=== PATIENT | male | born 1945 | race Caucasian/White ===

== ENCOUNTER 2017-07-17 14:21 | Emergency (ER) | payer MEDICARE, OTHER, SELFPAY ==
[2017-07-17] VITALS (7 sets, daily range): BP systolic 161–172; BP diastolic 90–91; PULSE 62–63; RESP 16–18; TEMP 36.6; O2SAT 94–98; BMI 22.6
--- NOTE | 2017-07-17 14:45 | EKG12_ITS ---
Test Reason : [facility] [place] Pressure : / mmHG Vent. Rate : 057 BPM Atrial Rate : 057 BPM P-R Int : 156 ms QRS Dur : 090 ms QT Int : 418 ms P-R-T Axes : 077 078 069 degrees QTc Int : 406 ms Sinus bradycardia with sinus arrhythmia Otherwise normal ECG Confirmed by VANDANA VASQUEZ, ARYA ([id number]), assistant film editor CORBIN VALENTINO ([id number]) on 07/21/2017 4:37:49 PM Referred By: DIAZ Confirmed By:ARYA ROSS MD
--- NOTE | 2017-07-17 14:45 | CT_ITS ---
STUDY: CT BRAIN WITHOUT CONTRAST REASON FOR EXAM: Male, 72 years old. Confusion. RADIATION DOSAGE (If Supplied By Facility): CTDIvol = ( 44.99 ) mGy, DLP = ( 779.24 ) mGycm TECHNIQUE: Transaxial CT imaging of the brain was performed without administration of intravenous contrast material. Individualized dose optimization techniques were used for this CT. COMPARISON: None. FINDINGS: Normal soft tissue structures. Normal calvarium. There is mild cerebral atrophy with widening of the extra-axial spaces and ventricular dilatation. Normal white matter tracts of the cerebral hemispheres. Normal basal ganglia and thalami. There is evidence of old infarctions in the tasneem and midbrain. Normal cerebellum. There is no intracranial hemorrhage. There are no findings of an acute ischemic infarction. Atherosclerotic calcification of the vertebral arteries and cavernous portions of the internal carotid arteries bilaterally. Normal visualized paranasal sinuses. CT/Brain/Head without Contrast IMPRESSION: Chronic involutional changes of the brain. 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 Electronically Signed: Bladimir Turner MD at 15:36 EST Tel [phone], Service support ,
--- NOTE | 2017-07-17 14:59 | ED.VISSUMM ---
- ER Visit Summary Date of Service: 07/17/17 Chief Complaint: Suicidal thoughts History of Present Illness: The patient is a 72 M who cares for his at home, who is disabled from a major stroke. This is caused him great depression, which he has been dealing with since 2006. He has been seen counseling here locally for that, but stopped several months ago because it did not feel like it was helping. For the last week he is feeling worse and having suicidal thoughts although he has no intention of doing so. No physical symptoms or illnesses lately. Family states he has been seemingly confused at times, this is mostly when he seems to be feeling overwhelmed, and he seems more confused with what kind of task to do next regarding taking care of himself or his , however he is not had any confusion regarding who he is, where he is, etc. Physical Examination: Hypertensive 172/90 otherwise vital signs are normal. He has a depressed affect but is keenly alert and oriented ?3 and has a normal peripheral neurologic exam. Neck is supple. Heart is regular, lungs are clear. Abdomen benign. No signs of self injury. No thyromegaly or neck tenderness. Neck is supple. Test Results: Labs, toxicology, CT head, EKG unremarkable. Emergency Department Course and Treatment: Medically cleared for psychiatric evaluation. Awaiting crisis to evaluate. Treatment Plan: Crisis evaluation Disposition: Pending crisis evaluation Impression: Depression Suicidal thoughts This note was generated with Glints dictation software. It may contain incorrect words, spelling, and punctuation that were not noted in review of the chart prior to signing ED Disposition - Plan for ED Patient: Chief Complaint: Mental Health Referrals: Glenn Choe MD [Primary Care Provider] -
--- NOTE | 2017-07-17 15:02 | ED.DCSUM_ITS ---
- ER Visit Summary Date of Service: 07/17/17 Chief Complaint: Suicidal thoughts History of Present Illness: The patient is a 72 M who cares for his at home , who is disabled from a major stroke. This is caused him great depression, which he has been dealing with since 2006. He has been seen counseling here locally for that, but stopped several months ago because it did not feel like it was helping. For the last week he is feeling worse and having suicidal thoughts although he has no intention of doing so. No physical symptoms or illnesses lately. Family states he has been seemingly confused at times, this is mostly when he seems to be feeling overwhelmed, and he seems more confused with what kind of task to do next regarding taking care of himself or his , however he is not had any confusion regarding who he is, where he is, etc. Physical Examination: Hypertensive 172/90 otherwise vital signs are normal. He has a depressed affect but is keenly alert and oriented ?3 and has a normal peripheral neurologic exam. Neck is supple. Heart is regular, lungs are clear. Abdomen benign. No signs of self injury. No thyromegaly or neck tenderness. Neck is supple. Test Results: Labs, toxicology, CT head, EKG unremarkable. Emergency Department Course and Treatment: Medically cleared for psychiatric evaluation. Awaiting crisis to evaluate. Treatment Plan: Crisis evaluation Disposition: Pending crisis evaluation Impression: Depression Suicidal thoughts This note was generated with [employer] dictation software. It may contain incorrect words, spelling, and punctuation that were not noted in review of the chart prior to signing ED Disposition - Plan for ED Patient: Chief Complaint: Mental Health Referrals: Glenn Choe MD [Primary Care Provider] -
[2017-07-17 15:09] LABS: Amphetamine Urine VISTA NEGATIVE (<1000 ng/mL); Barbiturate Urine VISTA NEGATIVE (< 200 ng/mL); Benzodiazepine Urine VISTA NEGATIVE (< 200 ng/mL); Cocaine Urine VISTA NEGATIVE (< 300 ng/mL); Ecstacy Urine VISTA NEGATIVE (< 500 ng/mL); Methadone Urine VISTA NEGATIVE (< 300 ng/mL); PCP Urine VISTA NEGATIVE (< 25 ng/mL); THC Urine VISTA NEGATIVE (< 50 ng/mL); Vista UDS pH Range 6
[2017-07-17 15:20] LABS: Absolute Lymphocyte Count 0.69 X10^3/ul (0.83-4.51); Absolute Neutrophil Count 6.1 X10^3/uL (2.0-7.7); Basophil# 0.02 X10^3/uL; Basophil% 0.3 % (0-1); Eosinophils% 1.3 % (0-5); Hematocrit 41.5 % (40-54); Hemoglobin 13.9 g/dl (13.0-16.5); Lymphocyte # 0.69 X10^3/ul (4.0); Lymphocyte % 9.2 % (19-41); Mean Corp Hgb Conc 33.5 g/gl (32-36); Mean Corpuscular Hgb 29.9 pg (27.0-32.0); Mean Corpuscular Volume 89.2 fL (80-94); Mean Platelet Vol. 9.5 fl (6.2-12.0); Monocyte# 0.63 X10^3/uL; Monocyte% 8.4 % (0-10); Neutrophil # 6.06 X10^3/uL (2.7-7.7); Neutrophil % 80.7 % (47-70); Platelet Count 213 K/mm3 (150-450); RBC Distribution Width CV 13.7 % (11.6-14.6); RBC Distribution Width SD 44.7 fl (35.1-43.9); Red Blood Count 4.65 M/mm3 (4.6-6.2); White Blood Count 7.5 K/mm3 (4.4-11.0)
[2017-07-17 15:28] LABS: POSITIVE COUNT NO; POSITIVE DIFFERENTIAL NO; POSITIVE MORPHOLOGY NO; Thyroid Stim Hormone (TSH) 2.09 uIU/mL (0.358-3.74)
[2017-07-17 17:16] LABS: Anion Gap 9 (5-15); BUN 15 mg/dL (7-18); BUN/Creat Ratio 17.3 RATIO (10-20); Calcium,Total 8.8 mg/dL (8.5-10.1); Chloride 111 mmol/L (98-107); Creatinine, Serum 0.87 mg/dL (0.70-1.30); EST Glomerular Filtration Rate 92 mL/min (>60); Est Glom Filt Rate - Afr Amer 112 mL/min (>60); Estimated Creatinine Clearance 69.95 ml/min; Glucose 85 mg/dL (74-106); Potassium 3.5 mmol/L (3.5-5.1); Sodium Level 143 mmol/L (136-145)
--- NOTE | 2017-07-17 22:17 | ED.VISSUMM ---
- ER Visit Summary Date of Service: 07/17/17 Chief Complaint: [] History of Present Illness: The patient is a 72 M [] Physical Examination: [] Test Results: [] Emergency Department Course and Treatment: [] Treatment Plan: [] Disposition: [] Impression: [] This note was generated with [employer] software. It may contain incorrect words, spelling, and punctuation that were not noted in review of the chart prior to signing <Bossman Yeager - Last Filed: 07/17/17 22:17> - ER Visit Summary Addendum: This patient was checked out to me by Dr. Thakur with consult from the counseling center pending. They have been into see the patient and have discussed things with him. He is able to contract for safety. He will be discharged instructed to follow-up the counseling center on Thursday for further evaluation and treatment. Return to the emergency department for any further thoughts of harming himself or any other concerns. This note was generated with [employer] software. It may contain incorrect words, spelling, and punctuation that were not noted in review of the chart prior to signing <Javon Aguilar - Last Filed: 07/18/17 00:55> ED Disposition <Bossman Yeager - Last Filed: 07/17/17 22:17> <Javon Aguilar - Last Filed: 07/18/17 00:55> - Plan for ED Patient: Disposition: Home or Assisted Living Chief Complaint: Mental Health Instructions: ED Depression Referrals: Counseling,Center [GROUP OF PHYSICIANS] -
== END 2017-07-17 22:26 | disposition home or self-care (01) ==
PROVIDERS: Emergency Provider Emergency Medicine; Family Provider Family Medicine; PCP Family Medicine
DX: R45.851 Suicidal ideations (principal); F32.9 Major depressive disorder, single episode, unspecified; E78.00 Pure hypercholesterolemia, unspecified
CPT/HCPCS: 36415; 70450; 80048; 80307; 80320; 84443; 85025; 93005; 99283; G0480

== ENCOUNTER 2019-02-11 12:21 | Day surgery (SDC) | payer MEDICARE, SELFPAY ==
[2019-02-11 12:46] VITALS: BP 147/85; PULSE 70; RESP 16; TEMP 37.1; O2SAT 96; BMI 23.8
[2019-02-11] MEDS: Lactated Ringers 1,000 ML 100 ML IV (12:56)
[2019-02-11] MEDS: Cefazolin 2 GM in 0.9% Normal Saline 100 ML IV (14:04)
--- NOTE | 2019-02-11 14:51 | DCINST_ITS ---
Discharge Diet: Light diet - advance as tolerated Discharge Activity: Return to Normal Activity Instructions: Shock Wave Lithotripsy Allergies/Adverse Reactions: Allergies amoxicillin Allergy (Verified 02/11/19 12:33) Pain in joints doxycycline Allergy (Verified 02/11/19 12:33) Upset Stomach Sulfa (Sulfonamide Antibiotics) Allergy (Verified 02/11/19 12:33) Swelling Medications to take at Discharge Atorvastatin Calcium [Lipitor] 40 mg PO DAILY 07/17/17 Montelukast [Singulair] 10 mg PO DAILY 07/17/17 Terazosin HCl [Hytrin] 2 mg PO DAILY 07/17/17 Venlafaxine XR [Effexor Xr] 150 mg PO DAILY 07/17/17 Oxycodone HCl/Acetaminophen [Percocet 5/325] 1 tab PO Q4H PRN PRN 5 Days #14 tab 02/11/19 The following prescriptions were given: Oxycodone HCl/Acetaminophen [Percocet 5/325] 1 tab PO Q4H PRN PRN 5 Days #14 tab PRN Reason: Pain Prescription Printed Primary Care Physician: Glenn Choe MD [Primary Care Provider] - Test Results: Test results from this visit will be discussed in further detail at your follow- up appointment, if applicable. Please Follow Up With: Christiano Llanos MD When: in 2 weeks, please call to make an appointment.
--- NOTE | 2019-02-11 14:53 | PCM.OPRPT ---
Report of Operation Date of Procedure: 02/11/19 Pre-Operative Diagnosis: Left ureteral calculi causing obstruction, mid ureter Post-Operative Diagnosis: Same Surgery/Procedure Performed:: Left extracorporeal shockwave lithotripsy Description of Surgical Findings:: 73-year-old male presented the office with obstructing stone in the mid left ureter on review of his x-rays and CAT scan recommended we proceed with shockwave lithotripsy understands possible the treatment could fail may need more than one treatment could also reduce require a stent. After reviewing the risk and benefits of the procedure the patient wishes to proceed. 73-year-old male taken back to the operating room at the smooth induction of general anesthesia he was placed supine on the table and then we placed him on the table supine we used fluoroscopy to identify the stone in the mid ureter on the left side after triangulating the stone we then brought in the therapy had replaced the stone at the F2 focal point of the machine and then started with shockwave lithotripsy aiming the shockwaves at the stone we monitored the stone during the treatment phase. We increased her power from 7 to 9 kV rate of 90. At a total of 3000 shockwaves a stone it broken up and successful smaller fragments decided not to leave a stent and we stopped the treatment at the end of the treatment cycle appeared to be a successful fragmentation plan to see him back in a few weeks with a KUB. Patient anesthetic was reversed taken back to PACU good condition. - Admit VTE Documentation VTE Present on Admission: No VTE Mechan Device Prophylaxis: SCD's
[2019-02-11 14:58] VITALS: BP 147/85; BP 151/84; PULSE 80; RESP 16; TEMP 36.7; O2SAT 97
[2019-02-11 15:15] VITALS: BP 137/77; BP 147/85; PULSE 80; RESP 16; O2SAT 98
[2019-02-11] MEDS: Ketorolac 15 MG/ML Vial IV (15:19)
[2019-02-11 15:30] VITALS: BP 145/78; BP 147/85; PULSE 75; RESP 16; TEMP 36.7; O2SAT 93
[2019-02-11 16:00] VITALS: BP 147/85
== END 2019-02-11 16:09 | disposition home or self-care (01) ==
LOC: SDC 12:24 → AC 12:25
PROVIDERS: Family Provider Family Medicine; PCP Family Medicine; Referring Provider Urology; Visit Provider Urology
PROC: (CPT 50590; principal; 2019-02-11 14:35)
DX: N20.1 Calculus of ureter (principal)
CPT/HCPCS: 00873; 50590; J7120; J2405

== ENCOUNTER → 2019-03-01 13:19 | Outpatient (CLI) | payer MEDICARE, SELFPAY ==
[2019-02-11 12:46] VITALS: BMI 23.8
--- NOTE | 2019-03-01 13:21 | RAD_ITS ---
STUDY: X-RAY - ABDOMEN/PELVIS REASON FOR EXAM: Male, 73 years old. ESWL one month ago. Evaluate for renal stones. TECHNIQUE: Single AP view of the abdomen / pelvis. COMPARISON: None. FINDINGS: Normal visualized lung bases. There is an unremarkable bowel gas pattern. There is no demonstrated free abdominal air. The visualized liver, spleen and kidneys are grossly normal in size and morphology. Cholecystectomy clips. Phleboliths in the pelvis. Normal visualized osseous structures. RAD/Abdomen Single View IMPRESSION: No radiopaque stones identified. Electronically Signed: David Weir MD at 13:46 EDT , Service support ,
== END ==
PROVIDERS: Family Provider Family Medicine; PCP Family Medicine; Referring Provider Urology; Visit Provider Urology
DX: N20.0 Calculus of kidney (principal)
CPT/HCPCS: 74018

== ENCOUNTER → 2023-06-30 | Outpatient (CLI) | payer MEDICARE, SELFPAY ==
--- NOTE | 2023-06-30 09:44 | RAD_ITS ---
STUDY: X-RAY - ESOPHAGUS (BARIUM SWALLOW) WITH FLUOROSCOPY REASON FOR EXAM: Male, 78 years old. DYSPHAGIA TECHNIQUE: 16 view(s) of the esophagus were obtained following swallowing of barium. FLUOROSCOPY TIME (if supplied): (12 seconds) minutes/seconds. 9.39 mGy COMPARISON: None. FINDINGS: There is no demonstrated esophageal foreign body. There is no demonstrated stricture or mucosal abnormality. Normal gastroesophageal junction, without a demonstrated hiatal hernia. The patient is status post hiatal hernia repair. The patient ingested a 12 mm tablet of barium without any difficulty. Normal visualized aortic arch and descending thoracic aorta. Normal visualized pulmonary parenchyma. Normal visualized osseous structures of the thorax. RAD/Esophagus Single Contrast IMPRESSION: No evidence of gastroesophageal reflux. Evidence of prior hiatal hernia repair. Electronically Signed: Bladimir Turner MD at 12:30 EST ,
--- OUTSIDE RECORDS SUMMARY | 2023-06-30 10:17 | XMS RPT_ITS | CCD ---
Author Name Unknown Address [address] [facility] [address] [place] [address] Organization [facility] Care Team Providers Care Coppersmith Helper Name Role Phone NICOLETTE MELÉNDEZ Referring Unavailable YESICA PADILLA Admitting Unavailable YESICA PADILLA Primary Care Unavailable YESICA PADILLA Attending Unavailable NICOLETTE MELÉNDEZ Consulting Unavailable PROVIDER, UNKNOWN Consulting Unavailable PROVIDER, UNKNOWN Consulting Unavailable PROVIDER, UNKNOWN Consulting Unavailable NICOLETTE MELÉNDEZ Consulting Unavailable ROSA [place] Admitting Unavailable ROSA [place] Primary Care Unavailable ROSA [place] Attending Unavailable PROVIDER, UNKNOWN Consulting Unavailable PROVIDER, UNKNOWN Consulting Unavailable PROVIDER, UNKNOWN Consulting Unavailable SUPPTIKI DPM, NEHAL Mendoza Attending Unavailable PHYSICIAN, NONE Primary Care Unavailable SUPPTIKI DPM, NEHAL Mendoza Attending Unavailable PHYSICIAN, NONE Primary Care Unavailable Eric VASQUEZ, Gerald Lord Unavailable Dr. Josh Honeycutt MD Unavailable [facility] Unavailable TYRONE SONI Unavailable [facility] Walker Unavailable Dr. Farhan Call MD Unavailable [phone] Dr. Armando Vitale MD Unavailable Dr. Kacey Rodriguez MD Unavailable Dr. Rosa Oh MD. Unavailable Dr. Corby Casarez MD Unavailable Mabel Sanders MD Unavailable Loulou HANSON, Jennifer Unavailable Dennis Chao MD Unavailable Gogoi (scribe), Hemanta Unavailable Unavaila ble Erick FISH WARDEN, Romi Unavailable Unavailable Дмитрий VASQUEZ, Nicolette Lord Unavailable Laureen Younger Unavailable Unavailable Butch FISH WARDEN, Cara Unavailable Unavailable King GIANNA-C, Kamran Reeves Unavailable Erika FABIAN, Vandana Lord Unavailable Unavaila ble Goyo FISH WARDEN, Kandis Unavailable Unavailable [place] FISH WARDEN, Macy K Unavailable Unajayyi stas Francois ([facility]), Anuj Unavailable Unavailab le Angella FISH WARDEN, Mabel M Unavailable Unavailab le Ruben FISH WARDEN, Sofia Corrales Unavailable Unavailab le Zaugg FISH WARDEN, Patti Unavailable Unavailable Unavailable Unavailable Allergies Allergy Classification Reported Allergen(s) Allergy Type Date of Onset Reaction(s) Facility (1 source) Amoxicillin Drug Allergy [facility] Repository (1 source) Doxycycline Drug Allergy [facility] (1 source) Penicillins Drug allergy (disorder) [facility] (1 source) Sulfonamides (Antibiotic) Drug allergy (disorder) [facility] (1 source) Erythromycin Drug Allergy [facility], [facility]. (1 source) Penicillin V Drug Allergy [facility]. (1 source) Sulfonamides (Antibiotic) [facility]. Medications Current Medications Medication Drug Class(es) Dates Sig (Normalized) Sig (Original) atorvastatin 40 mg oral tablet (1 source) HMG-CoA Reductase Inhibitor Start: 06-08-2023 atorvastatin 40 mg tablet ; 1 (one) Tablet daily for 0 days Quantity: 90 {Tablet} Refills: 1 Ordered: 08-Jun-2023 MD Gerald Reyes Start: 08-Jun-2023 Completed/Discontinued Medications Medication Drug Class(es) Dates Sig (Normalized) Sig (Original) acyclovir 800 mg oral tablet (1 source) Herpesvirus Nucleoside Analog DNA Polymerase Inhibitor, Herpes Simplex Virus Nucleoside Analog DNA Polymerase Inhibitor, Herpes Zoster Virus Nucleoside Analog DNA Polymerase Inhibitor Start: 02-25-2021 End: 03-04-2021 take 1 tablet by mouth five times daily Acyclovir 800 MG Oral Tablet ; 1 (one) Tablet five times per day for 7 days Quantity: 35 {Tablet} Refills: 0 Ordered: 25-Feb-2021 Start: 25-Feb-2021 End: 04-Mar-2021 Status: Inactive [id number] 200 actuat albuterol 0.09 mg/actuat metered dose inhaler (1 source) beta2-Adrenergic Agonist End: 03-29-2015 VENTOLIN HFA, 108 (90 Base)MCG/ACT (Inhalation Aerosol Solution) ; (108 (90 Base) MCG/ACT) End: 29-Mar-2015 Status: Discontinued 120 actuat budesonide 0.16 mg/actuat / formoterol fumarate 0.0045 mg/actuat metered dose inhaler (1 source) Corticosteroid, beta2-Adrenergic Agonist Start: 04-14-2017 End: 04-06-2018 take 1 puff(s) by inhalation twice daily Symbicort 160-4.5 MCG/ACT Inhalation Aerosol ; 1 (one) puff puff two times daily for 0 days Quantity: 1 {Inhaler} Refills: 0 Ordered: 06-Apr-2018 VALENTIN Daniel Start: 14-Apr-2017 End: 06-Apr-2018 Status: Inactive 24 hr desvenlafaxine 100 mg extended release oral tablet (2 sources) Serotonin and Norepinephrine Reuptake Inhibitor take 1 tablet by mouth once daily Desvenlafaxine ER 100 MG Oral Tablet Extended Release 24 Hour ; 1 daily (100 MG) Status: Inactive levoFLOXacin 500 mg oral tablet (1 source) Quinolone Antimicrobial Start: 08-25-2017 End: 09-01-2017 take 1 tablet by mouth once daily LevoFLOXacin 500 MG Oral Tablet ; 1 (one) Tablet daily for 7 days Quantity: 7 {Tablet} Refills: 0 Ordered: 25-Aug-2017 MD Nicolette Meléndez Start: 25-Aug-2017 End: 01-Sep-2017 Status: Inactive loratadine 10 mg oral tablet (2 sources) Start: 10-03-2021 End: 10-09-2022 take 1 tablet by mouth once daily Loratadine 10 MG Oral Tablet ; 1 (one) Tablet daily for 0 days Quantity: 90 {Tablet} Refills: 3 Ordered: 09-Oct-2022 VALENTIN Jamil Start: 03-Oct-2021 End: 09-Oct-2022 Status: Inactive Comments: Mail order. Problems Active Problems Problem Classification Problem Date Documented Da te Episodic/Chronic Abdominal pain (1 source) Right flank pain; Translations: [Unspecified abdominal pain] 02-15-2015 Episodic Anxiety disorders (13 sources) Anxiety; Translations: [Anxiety disorder, unspecified] 04-15-2023 Chronic Past or Other Problems Problem Classification Problem Date Documented Da te Episodic/Chronic Coronary atherosclerosis and other heart disease (1 source) Coronary atherosclerosis and other heart disease 12-29-2014 Unclassified (1 source) Rash - The onset of the rash has been gradual and has been occurring in a persistent pattern for 10 days. The course has been increasing. The rash is characterized as red and pustular. The rash was first seen on the upper extremity (right arm). It spread to the upper extremity (don lower-- right arm). There has been associated pain, erythema and edema, while there has been no associated itching or drainage. There has been associated pain, while there has been no chills, fatigue, fever, itching, loss of sensation, lymphadenopathy or mucous membrane lesions. Note for Rash : pt has not had the shingrix vaccine 02-25-2021 Unclassified (1 source) Back pain - The onset of the back pain has been gradual and has been occurring in an intermittent pattern for 1 month. The course has been recurrent. The pain is characterized as a dull ache. The pain is located in the lower back and radiates to the lateral aspect of right leg (from the hip down to the knee). The pain is precipitated by a fall. The symptoms are aggravated by prolonged sitting and are relieved by stretching (getting up and walking). The pain has been associated with flank pain (right side), while there has been no associated back stiffness, dysuria, fever, hip pain or leg weakness. Note for Back pain : pt fell 25 feet from a ladder last month and broke his arm pt says his kidney hurts- he is wondering if he bruised it? pt also said he has hx of kidney stones 05-02-2020 Unclassified (1 source) MCR Well Adult - The patient has a balanced diet and takes no supplemental vitamins & iron. The patient exercises 3 - 4 times per week and sleeps 7 hours per night. The patient denies having trouble with bathing, dressing/grooming, toileting, preparing meals and ambulating. The patient denies having trouble with grocery shopping, driving, use of telephone, housework, laundry, preparing/taking medications and finances. The patient has a Healthcare Power of [employer] and a Living Will. 10-28-2019 Unclassified (1 source) Concern - Patient is here today with a concern of having possibly a hernia. Patient states that he previously had inguinal hernia on the left side, had surgery for this back 2006. Been having pain of the same area the past couple of weeks. The pain is intermittent and described as an achy pain that sometimes will feel like a burning sensation. 01-13-2019 Unclassified (1 source) [facility] Well Adult - In general the patient feels well with no complaints, has good energy level and is sleeping well. The patient has a balanced diet and takes supplemental vitamins. The patient exercises daily (riding bike/walking sit ups) and sleeps 8 hours per night. The patient denies having trouble with bathing, dressing/grooming, toileting, preparing meals and ambulating. The patient denies having trouble with grocery shopping, driving, use of telephone, housework, laundry, preparing/taking medications and finances. The patient does not have Healthcare Power of [employer] or Living Will. Note for [facility] Well Adult : JORGE LUIS 04/06/2018bmp lipid 03/31/2018pts b/p running higher, said nerves causing this 11-23-2018 Unclassified (1 source) Transition into care - The patient is transitioning into care from an emergency room ([facility] ER 07/17/2017) and a summary of care was reviewed. 11-03-2017 Unclassified (1 source) [ADDITIONAL REASON] [facility] Well Adult - In general the patient feels well with minor complaints, has good energy level (reports that he has difficulty with being motivated) and is sleeping well (sleeps better with taking medication). The patient has a balanced diet and takes no supplemental vitamins & iron. The patient does not exercise and sleeps 6 hours per night. The patient denies having trouble with bathing, dressing/grooming, toileting, preparing meals and ambulating. The patient denies having trouble with grocery shopping, driving, housework, laundry, preparing/taking medications and finances, but admits to having trouble with use of telephone (reports being hard of hearing, does wear hearing aids). The patient does not have Healthcare Power of [employer] or Living Will. Note for [facility] Well Adult : JORGE LUIS 08/25/2017. Last routine visit 04/14/2017. Last PSA 08/12/2016. Last Lipid and CMP 03/2017. 11-03-2017 Unclassified (1 source) Cold Symptoms - Symptoms include nasal congestion, runny nose, sore throat, scratchy throat, dry cough, productive cough, fever (low grade), general malaise (achy) and headache, but do not include ear pain or ear fullness. The onset was gradual 10 day(s) ago. The symptoms occur constantly. The patient describes this as moderate in severity and worsening. Current treatment includes acetaminophen. Risk factors do not include child in daycare or smoking. The patient has been exposed to an individual with similar symptoms, but has not been exposed to an individual with a cough, an individual with an upper respiratory infection or an individual with strep. 08-25-2017 Unclassified (1 source) Leg swelling - The onset of the leg swelling has been sudden and has been occurring in a persistent pattern for 1 week. The course has been constant. The leg swelling is described as moderate. The leg swelling is described as being located in the right calf. The symptoms have been associated with pain. Note for Leg swelling : Patient states a barn door hit his leg a week ago. The area is swollen and bruised down into the ankle. 02-24-2017 Unclassified (1 source) Finger pain - The pain is located in the proximal interphalangeal joint of the left little finger. This occurred hour(s) ago at home. The injury resulted from a fall. Symptoms include pain, swelling, deformity (Finger had been crooked but patient straightened out on his own), decreased range of motion and finger bruising. The patient is also complaining of pain proximal to the injury. The patient describes the pain as throbbing. The patient describes the pain as moderate in severity. Symptoms are exacerbated by moving the finger. Symptoms are relieved by ice. Current treatment includes ice. Risk factors include previous dislocation of the same joint (Patient fractured the distal joint on the same finger a year ago). 06-13-2016 Unclassified (1 source) MCR Well Adult - In general the patient feels well with no complaints, has good energy level and is sleeping well. The patient has a balanced diet and takes no supplemental vitamins & iron. The patient exercises 3 - 4 times per week and sleeps 8 hours per night. Over the past 2 weeks, the patient has been feeling down, depressed, or hopeless and feeling little interest or pleasure in doing things. The patient denies having trouble with bathing, dressing/grooming, toileting, preparing meals and ambulating. The patient denies having trouble with grocery shopping, driving, use of telephone, housework, laundry, preparing/taking medications and finances. The patient denies falling more than once in the past 12 months. The patient has a Healthcare Power of [employer], but does not have Living Will. 02-28-2016 Unclassified (1 source) Anxiety - The onset of the anxiety has been sudden and has been occurring in a persistent pattern for 1 month. The course has been increasing. The anxiety is characterized as apprehension, sinking feeling, nervousness and extreme fear. There are no specific phobias. Precipitating factors include specific circumstances (Taking care of his . She had stroke in September of 2014. She now has memory loss. He is dealing with her not knowing anyone or anything, it is upsetting him and starting to get him angry. ). The symptoms have been associated with chest pain, dizziness and weight loss (down 3lbs). Note for Anxiety : Eating, drinking, and sleeping well. 11-29-2015 Unclassified (1 source) Back pain - The onset of the back pain has been sudden and has been occurring in a persistent pattern for weeks (in 2 days it will be 3 weeks). The course has been constant. The pain is characterized as a dull ache. The pain is located in the lower back (right flank area) and radiates to the lower abdomen (right lower abdomen). The pain is precipitated by a fall. The symptoms have no relieving factors. Note for Back pain : -He was working outside, moving a log and walking backwards, tripped over a stone and fell backwards into the corner of a trailer. He took Tylenol the first night but nothing since. He expected that with time it would improve and it has not. 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 No lightheadedness or dizziness. Does have remote h/o kidney stones. 02-15-2015 Results Test Name Value Interpretation Reference Range Facil ity Vital Signs Date Time Vital Sign Value Performing Clinician Markos rajan 04-15-2023 14:19-0500 Body height 165.1 cm [employer] [facility] Work Phone: [facility] 04-15-2023 14:19-0500 Body mass index (BMI) [Ratio] 23.3 kg/m2 [employer] [facility] Work Phone: [facility] 04-15-2023 14:19-0500 Body surface area Derived from formula 1.7 m2 [employer] Work Phone: [facility] 04-15-2023 14:19-0500 Body weight 63.5 kg [employer] [facility] Work Phone: [facility] 04-15-2023 14:19-0500 Diastolic blood pressure 86 mm[Hg] [employer] Work Phone: [facility] Encounters Encounter Date Encounter Type Care Provider Facility Start: 04-15-2023 End: 04-15-2023 Patient encounter procedure Gerald Reyes MD Work Phone: [facility] Start: 04-08-2023 End: 04-08-2023 Orders Gerald Reyes MD Work Phone: [facility]. Start: 03-11-2023 End: 03-11-2023 Orders Gerald Reyes MD Work Phone: [facility] Start: 10-09-2022 End: 10-09-2022 Patient encounter procedure Gerald Reyes MD Work Phone: [facility] Start: 09-08-2022 ambulatory NEHAL ANTOINE DPM Faci lity:B Start: 09-04-2022 End: 09-05-2022 ambulatory NEHAL ANTOINE DPM Facility:[facility] Start: 04-25-2022 End: 04-25-2022 Orders Gerald Reyes MD Work Phone: [facility] Start: 2022 End: 2022 Patient encounter procedure Jennifer Jamil VALENTIN Work Phone: [facility] Start: 03-31-2022 End: 03-31-2022 Orders Gerald Reyes MD Work Phone: [facility] Start: 10-03-2021 End: 10-03-2021 Patient encounter procedure Gerald Reyes MD Work Phone: [facility] Start: 04-04-2021 End: 04-04-2021 Patient encounter procedure Gerald Reyes MD Work Phone: [facility] Start: 03-28-2021 End: 03-28-2021 Orders Gerald Reyes MD Work Phone: [facility] Start: 02-25-2021 End: 02-25-2021 Office outpatient visit 15 minutes Gerald Reyes MD Work Phone: [facility] Start: 10-02-2020 End: 10-02-2020 Office outpatient visit 25 minutes Gerald Reyes MD Work Phone: [facility] Start: 05-01-2020 End: 05-02-2020 Office outpatient visit 25 minutes Gerald Reyes MD Work Phone: [facility] Start: 04-10-2020 End: 04-10-2020 Telephone follow-up Gerald Reyes MD Work Phone: [facility] Start: 04-04-2020 End: 04-04-2020 Emergency department patient visit [facility] Start: 03-29-2020 End: 03-29-2020 Office outpatient visit 25 minutes Gerald Reyes MD Work Phone: [facility] Start: 03-22-2020 End: 03-22-2020 Orders Gerald Reyes MD Work Phone: [facility] Start: 12-21-2019 Patient encounter procedure [facility] Start: 10-28-2019 End: 10-28-2019 Patient encounter procedure Gerald Reyes MD Work Phone: [facility]; [facility]. Start: 10-28-2019 End: 10-28-2019 Periodic preventive med est patient 65yrs& older Gerald Reyes MD Work Phone: [facility] Start: 09-29-2019 End: 09-29-2019 Follow-up encounter Gerald Reyes MD Work Phone: [facility] Start: 04-28-2019 End: 05-03-2019 Office outpatient visit 25 minutes Gerald Reyes MD Work Phone: [facility] Start: 03-29-2019 End: 03-29-2019 Orders Gerald Reyes MD Work Phone: [facility] Start: 02-15-2019 End: 02-15-2019 Telephone follow-up Gerald Reyes MD Work Phone: [facility] Start: 01-13-2019 End: 01-13-2019 Office outpatient visit 15 minutes Gerald Reyes MD Work Phone: [facility] Start: 11-23-2018 End: 11-23-2018 Patient encounter procedure Gerald Reyes MD Work Phone: [facility] Start: 11-23-2018 End: 11-23-2018 Periodic preventive med est patient 65yrs& older Gerald Reyes MD Work Phone: [facility] Start: 04-06-2018 End: 04-06-2018 Office outpatient visit 25 minutes Gerald Reyes MD Work Phone: [facility] Start: 11-03-2017 End: 11-03-2017 Patient encounter procedure Vandana James RN [facility]; [facility]. Start: 11-03-2017 End: 11-03-2017 Periodic preventive med est patient 65yrs& older Gerald Reyes MD Work Phone: [facility]. Start: 10-15-2017 End: 10-15-2017 Orders Gerald Reyes MD Work Phone: [facility] Start: 08-25-2017 End: 08-25-2017 Office outpatient visit 25 minutes Gerald Reyes MD Work Phone: [facility] Start: 04-14-2017 End: 04-14-2017 Office outpatient visit 15 minutes Gerald Reyes MD Work Phone: [facility] Start: 02-24-2017 End: 02-24-2017 Office outpatient visit 15 minutes Gerald Reyes MD Work Phone: [facility] Start: 06-13-2016 End: 06-13-2016 Patient encounter procedure Gearld Reyes MD Work Phone: [facility] Start: 04-04-2016 End: 04-04-2016 Orders Gerald Reyes MD Work Phone: [facility] Start: 02-28-2016 End: 02-28-2016 Patient encounter procedure Macy Daniel LPN [employer] Start: 02-25-2016 End: 02-25-2016 Historical Summary Gerald Reyes MD Work Phone: [facility] Start: 02-21-2016 End: 02-22-2016 Orders Gerald Reyes MD Work Phone: [facility] Start: 01-07-2016 End: 01-07-2016 Historical Summary Gerald Reyes MD Work Phone: [facility] Start: 11-29-2015 End: 11-29-2015 Patient encounter procedure Gerald Reyes MD Work Phone: [facility] Start: 09-27-2015 End: 09-27-2015 Office outpatient visit 25 minutes Gerald Reyes MD Work Phone: [facility] Start: 03-29-2015 End: 03-29-2015 Office outpatient visit 15 minutes Gerald Reyes MD Work Phone: [facility] Start: 02-15-2015 End: 02-15-2015 Office outpatient visit 15 minutes Gerald Reyes MD Work Phone: [facility] Start: 12-28-2014 End: 12-29-2014 Office outpatient new 30 minutes Gerald Reyes MD Work Phone: [facility] Start: 12-27-2014 End: 12-27-2014 Historical Summary Gerald Reyes MD Work Phone: [facility] Patient encounter procedure Jennifer Jamil VALENTIN Work Phone: [facility] Procedures Date Procedure Procedure Detail Performing Clinician Start: 04-15-2023 End: 04-15-2023 Removal impacted cerumen instrumentation unilat Gerald Reyes MD Work Phone: Start: 04-15-2023 End: 04-15-2023 Adv care pln/ no alt dcsn mkr docd or refusal Gerald Reyes MD Work Phone: Start: 04-15-2023 End: 04-15-2023 Body mass index documented Gerald hernandez MD Work Phone: Start: 04-15-2023 End: 04-15-2023 Depression screening Gerald Reyes MD Work Phone: Start: 04-15-2023 End: 04-15-2023 Docrev cur meds by alejandra cota MD Work Phone: Start: 04-15-2023 End: 04-15-2023 Falls risk assessment documented Gerald Reyes MD Work Phone: Start: 04-15-2023 End: 04-15-2023 Most recent diastolic blood pressure 80-89 mm hg Gerald Reyes MD Work Phone: Start: 04-15-2023 End: 04-15-2023 Most recent systolic blood press 130-139mm hg Gerald Reyes MD Work Phone: Start: 04-15-2023 End: 04-15-2023 Pneumococcal vaccine admin rcvd prior Gerald Reyes MD Work Phone: Start: 04-15-2023 End: 04-15-2023 Pos clin depres scrn f/u doc Gerald cota MD Work Phone: Start: 04-15-2023 End: 04-15-2023 PPPS, subseq visit Gerald Tavares Work Phone: Start: 04-15-2023 End: 04-15-2023 Pt falls assess docd w/o fall/injury past year Gerald Reyes MD Work Phone: Start: 04-08-2023 End: 04-08-2023 Lab findings surveillance Jennifer Garvin LEO Work Phone: Plan of Treatment Date Care Activity Detail Author Start: 10-15-2023 Patient encounter procedure Medical; RTN OFFICE VISIT - 6 month RTN [facility] Start: 15-Oct-2023 15:50 MD Gerald Reyes Appointment Request [facility] Immunizations Immunization Date Immunization Notes Care Provider Fa cility 10-03-2021 zoster vaccine [facility] 07-03-2021 zoster vaccine recombinant [facility] MD [facility] 04-04-2021 pneumococcal polysaccharide vaccine, 23 valent Gerald Reyes MD Work Phone: [facility] Payers Date Payer Category Payer Medicare [id number] 1945 Unknown [id number] 1945 Unknown [id number] 1945 Unknown [id number] 1945 Unknown [id number] Unknown [employer] - PRIMETIME Social History Date Type Detail Facility Caffeine Use Caffeine Use [facility]; [facility] Tobacco Use: Tobacco Use: ; Never smoker. [facility] Male [facility]; [facility] Work Phone: Never smoked tobacco [facility] Work Phone: Summary Purpose Family History Cancer Status:Active Comments:Mother. Bone Cancer Status:Active Comments:Mother. Bone cancer Carotid Artery Disease Status:Active Comments: Mother. Father Status:Active Comments: d. Mother Status:Active Comments: d. Advance Directives No Advanced Directives Records FoundNo Advanced Directives Records FoundNo Advanced Directives Records Found Additional Source Comments (unrecognized sect ion and content) No Status Records FoundNo Status Records FoundNo Status Records Found INFORMATION SOURCE (unrecogn ized section and content) DATE CREATED AUTHOR AUTHOR'S ORGANIZ ATION 09/09/2022 [facility] ([place]) DATE CREATED AUTHOR AUTHOR'S ORGANIZ ATION 04/11/2023 [facility] FOR RECORDS PERTAINING TO PATIENTS WHO ARE OR HAVE BEEN ENROLLED IN A CHEMICAL DEPENDENCY/SUBSTANCEABUSE PROGRAM, SOME INFORMATION MAY BE OMITTED. This clinical summary was aggregated from multiple sources. Caution should be exercised in using it in the provision of clinical care. This summary normalizes information from multiple sources, and as a consequence, information in this document may materially change the coding, format and clinical context of patient data. In addition, data may be omitted in some cases. CLINICAL DECISIONS SHOULD BE BASED ON THE PRIMARY CLINICAL RECORDS. [facility]. provides no warranty or guarantee of the accuracy or completeness of information in this document.
== END | disposition home or self-care (01) ==
PROVIDERS: PCP Family Medicine; Referring Provider Internal Medicine Gastroenterology; Visit Provider Internal Medicine Gastroenterology
DX: R13.10 Dysphagia, unspecified (principal)
CPT/HCPCS: 74220